=== PATIENT | female | born 1970 | race African-American/Black ===

== ENCOUNTER 2017-06-15 09:57 | Emergency (ER) | payer OTHER, MEDICAID ==
[~2017-06-15] VITALS: Ht 175.3 cm; Wt 160.0 kg
[2017-06-15 10:09] VITALS: BP 175/97; PULSE 92; RESP 22; TEMP 98.7; O2SAT 98
[2017-06-15] MEDS ORDERED: KETOROLAC TROMETHAMINE 30 MG/ML (IVP) VIAL IV PUSH ONE (11:45)
[2017-06-15] MEDS ORDERED: ORPHENADRINE INJ 60 MG/2 ML AMP IM ONE (11:45)
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
[2017-06-15 12:29] LABS: BASOPHIL % 0.6 % (0.0-2.0); EOSINOPHIL % 0.9 % (0.0-4.0); HEMATOCRIT 43.8 % (35.0-46.0); HEMO FLAGS DIFF FINAL; LYMPH % 33.2 % (9.0-44.0); LYMPHOCYTE # 1.7 TH/MM3 (1.0-4.8); MEAN CELL VOLUME 93.4 FL (80.0-100.0); MEAN CORPUSCULAR HEMOGLOBIN 30.9 PG (27.0-34.0); MEAN CORPUSCULAR HGB CONC 33.1 % (32.0-36.0); MONO % 6.7 % (0.0-8.0); NEUT % 58.6 % (16.0-70.0); PLATELET COUNT 304 TH/MM3 (150-450); RED BLOOD COUNT 4.69 MIL/MM3 (4.00-5.30); RED CELL DISTRIBUTION WIDTH 13.2 % (11.6-17.2); WHITE BLOOD COUNT 5.1 TH/MM3 (4.0-11.0)
[2017-06-15] MEDS ORDERED: ROBA750T PO (12:40)
[2017-06-15] MEDS ORDERED: IBUP-232 PO (12:40)
[2017-06-15 12:48] LABS: BICARBONATE 27.3 MEQ/L (21.0-32.0); POTASSIUM 4.1 MEQ/L (3.5-5.1)
[2017-06-15] MEDS ORDERED: IOHEXOL 350 MG/ML 10 ML VIAL (for RAD DIAG) IVCONTRAST ONE (13:00)
--- NOTE | 2017-06-15 13:58 | EKG ---
Date Performed: 06/15/2017 Time Performed: 10:19:20 PTAGE: 46 years EKG: Sinus rhythm Nonspecific T wave changes NO PREVIOUS TRACING DOCTOR: Keegan Randle Interpretating Date/Time 06/15/2017 13:56:32
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
== END 2017-06-15 16:09 | disposition home or self-care (01) ==
LOC: NEPD 09:57
DX: S96.911A Strain of unspecified muscle and tendon at ankle and foot level, right foot, initial encounter (principal); R10.30 Lower abdominal pain, unspecified; M79.652 Pain in left thigh; V43.52XA Car driver injured in collision with other type car in traffic accident, initial encounter; Y92.410 Unspecified street and highway as the place of occurrence of the external cause; Y99.8 Other external cause status
CPT/HCPCS: 71010; 73630; 74177; 80048; 85025; 93005; 99285; Q9967